=== PATIENT | male | born 1960 | race Caucasian/White ===

== ENCOUNTER → 2017-07-03 | Outpatient (CLI) | payer MEDICARE ==
[2014-04-03 14:12] VITALS: BP 133/84
[~2017-07-03] MED LIST: MOBIC15 MG PO; NEURONTIN300 MG PO; PERCOCET 325 MG1 TAB PO
[2017-07-03 15:26] LABS: EOS % 0.7 % (0.0-4.0); HEMATOCRIT 46.3 % (42.0-52.0); HEMOGLOBIN 15.2 g/dL (13.5-18.0); LYMPH# 1.6 (1.50-4.00); MEAN CELL VOLUME 92 fl (78-100); MEAN CORPUSCULAR HEMOGLOBIN 30 pg (27-31); MEAN CORPUSCULAR HGB CONC 33 g/dL (33-37); MEAN PLATELET VOLUME 9.2 fl (7.4-10.4); MONO # 0.5 (0.20-0.80); NEU # 3.9 (1.40-6.50); PLATELET COUNT 212 K/mm3 (130-400); RED BLOOD COUNT 5.05 M/mm3 (4.20-5.60); RED CELL DISTRIBUTION WIDTH 13.9 % (11.5-14.5); WHITE BLOOD COUNT 6.1 K/mm3 (4.8-10.8)
[2017-07-03 16:10] LABS: ALBUMIN 4.2 g/dL (3.5-5.0); BUN/CREATININE RATIO 17.8 (6.0-26.0); CALCIUM 9.3 mg/dL (8.4-10.2); POTASSIUM 4.3 mmol/L (3.6-5.0); TOTAL BILIRUBIN 0.5 mg/dL (0.2-1.3); TOTAL PROTEIN 7.1 g/dL (6.3-8.2)
[2017-07-03 16:44] LABS: ERYTHROCYTE SEDIMENTATION RATE 1 mm/hr (0-20)
[2017-07-03 17:50] LABS: URINE APPEARANCE CLEAR; URINE BILIRUBIN NEGATIVE (NEGATIVE); URINE BLOOD NEGATIVE (NEGATIVE); URINE COLOR YELLOW; URINE GLUCOSE NEGATIVE (NEGATIVE); URINE KETONE NEGATIVE (NEGATIVE); URINE LEUKOCYTE ESTERASE NEGATIVE (NEGATIVE); URINE NITRATE NEGATIVE (NEGATIVE); URINE PROTEIN(semi-quant) NEGATIVE (NEGATIVE); URINE UROBILINOGEN NORMAL (NORMAL)
== END ==
LOC: LAB 15:03
PROVIDERS: Internal Medicine
DX: R10.11 Right upper quadrant pain (principal); E78.2 Mixed hyperlipidemia; Z12.5 Encounter for screening for malignant neoplasm of prostate

== ENCOUNTER → 2017-07-06 | Outpatient (CLI) | payer MEDICARE ==
[2014-04-03 14:12] VITALS: BP 133/84
== END ==
LOC: RAD 10:10
DX: K76.9 Liver disease, unspecified (principal); K86.9 Disease of pancreas, unspecified; S32.020A Wedge compression fracture of second lumbar vertebra, initial encounter for closed fracture; Z98.890 Other specified postprocedural states
CPT/HCPCS: Q9967

== ENCOUNTER → 2017-07-16 | Outpatient (CLI) | payer MEDICARE ==
[2014-04-03 14:12] VITALS: BP 133/84
[2017-07-16 09:47] LABS: EOS # 0.1 (0.04-0.40); EOS % 1.1 % (0.0-4.0); HEMATOCRIT 46.9 % (42.0-52.0); HEMOGLOBIN 15.4 g/dL (13.5-18.0); LYMPH# 1.3 (1.50-4.00); MEAN CELL VOLUME 91 fl (78-100); MEAN CORPUSCULAR HEMOGLOBIN 30 pg (27-31); MEAN CORPUSCULAR HGB CONC 33 g/dL (33-37); MEAN PLATELET VOLUME 9.4 fl (7.4-10.4); MONO # 0.4 (0.20-0.80); NEU # 2.8 (1.40-6.50); PLATELET COUNT 222 K/mm3 (130-400); RED BLOOD COUNT 5.13 M/mm3 (4.20-5.60); RED CELL DISTRIBUTION WIDTH 14.1 % (11.5-14.5); WHITE BLOOD COUNT 4.5 K/mm3 (4.8-10.8)
[2017-07-16 10:00] LABS: ALBUMIN 4.1 g/dL (3.5-5.0); BUN/CREATININE RATIO 19.1 (6.0-26.0); CALCIUM 9.2 mg/dL (8.4-10.2); POTASSIUM 4.4 mmol/L (3.6-5.0); TOTAL BILIRUBIN 0.5 mg/dL (0.2-1.3); TOTAL PROTEIN 6.9 g/dL (6.3-8.2)
[2017-07-16 10:56] LABS: ERYTHROCYTE SEDIMENTATION RATE 1 mm/hr (0-20)
== END ==
LOC: LAB 09:24
PROVIDERS: Internal Medicine
DX: R10.11 Right upper quadrant pain (principal); K85.80 Other acute pancreatitis without necrosis or infection

== ENCOUNTER → 2017-08-05 | Outpatient (CLI) | payer MEDICARE ==
[2014-04-03 14:12] VITALS: BP 133/84
== END ==
LOC: LAB 13:12
DX: R19.4 Change in bowel habit (principal); R10.9 Unspecified abdominal pain; R63.4 Abnormal weight loss

== ENCOUNTER 2018-11-01 14:27 | Emergency (ER) | payer MEDICARE ==
[~2018-11-01] VITALS: Ht 177.8 cm; Wt 67.3 kg
[~2018-11-01 14:27] MED LIST changes: +NEURONTIN300 M1 PO; -NEURONTIN300 MG PO
[2018-11-01] MEDS ORDERED: LITHATE20 MG (14:44)
[2018-11-01] MEDS ORDERED: VALIUM 5MG T5 MG/TAB PO (14:45)
[2018-11-01 15:08] LABS: HEMATOCRIT 47.6 % (42.0-52.0); HEMOGLOBIN 15.7 g/dL (13.5-18.0); MEAN CELL VOLUME 90 fl (78-100); MEAN CORPUSCULAR HEMOGLOBIN 30 pg (27-31); MEAN CORPUSCULAR HGB CONC 33 g/dL (33-37); MEAN PLATELET VOLUME 9.4 fl (7.4-10.4); PLATELET COUNT 113 K/mm3 (130-400); RED BLOOD COUNT 5.28 M/mm3 (4.20-5.60); RED CELL DISTRIBUTION WIDTH 13.8 % (11.5-14.5)
[2018-11-01 15:16] LABS: ALBUMIN 3.8 g/dL (3.5-5.0); WHITE BLOOD COUNT 1.9 K/mm3 (4.8-10.8)
[2018-11-01 15:17] LABS: POTASSIUM 4.1 mmol/L (3.5-5.1)
[2018-11-01 15:18] LABS: CALCIUM 8.1 mg/dL (8.3-10.5)
[2018-11-01 15:19] LABS: TOTAL PROTEIN 6.3 g/dL (6.4-8.3)
[2018-11-01 15:21] LABS: TOTAL BILIRUBIN 0.3 mg/dL (0.2-1.2)
[2018-11-01 15:49] LABS: EOS % 0.5 % (0.0-4.0); MONO # 0.2 (0.20-0.80)
[2018-11-01 16:06] LABS: LYMPH# 0.7 (1.50-4.00); NEU # 1.1 (1.40-6.50)
[2018-11-01 16:07] LABS: LYMPHOCYTE 29 % (20-51); MONOCYTE 8 % (3-10); NEUTROPHILS 54 % (42-75)
[2018-11-01 17:06] LABS: URINE APPEARANCE CLEAR; URINE COLOR YELLOW; URINE PROTEIN(semi-quant) 1+ mg/dL (NEGATIVE)
[2018-11-01 17:07] LABS: URINE BILIRUBIN NEGATIVE (NEGATIVE); URINE BLOOD 50 ery/uL (NEGATIVE); URINE GLUCOSE NEGATIVE (NEGATIVE); URINE KETONE 1+ (NEGATIVE); URINE LEUKOCYTE ESTERASE NEGATIVE (NEGATIVE); URINE MUCUS PRESENT (NOT PRESENT); URINE NITRATE NEGATIVE (NEGATIVE); URINE UROBILINOGEN NORMAL (NORMAL); URINE WBC 0-1 /hpf (0-3)
[2018-11-01] MEDS ORDERED: PERCOCET 325 MG1 TA2 PO (17:57)
[2018-11-01] MEDS ORDERED: VIBRAMYCIN HYC100 MG PO (17:57)
[2018-11-01] MEDS ORDERED: ZOFRAN4 M2 PO (17:57)
[2018-11-01 19:11] VITALS: BP 92/54
== END 2018-11-01 19:11 | disposition home or self-care (01) ==
LOC: ED 14:27
PROVIDERS: Nurse Practitioner Primary Care
DX: D70.9 Neutropenia, unspecified (principal); M54.9 Dorsalgia, unspecified; R11.2 Nausea with vomiting, unspecified; M19.90 Unspecified osteoarthritis, unspecified site; F17.210 Nicotine dependence, cigarettes, uncomplicated; Z90.49 Acquired absence of other specified parts of digestive tract; Z98.890 Other specified postprocedural states
CPT/HCPCS: J0696; J1885; J2270; J2405; J7030

== ENCOUNTER → 2018-11-11 | Outpatient (CLI) | payer MEDICARE ==
[2018-11-01 19:11] VITALS: BP 92/54
[~2018-11-11] MED LIST changes: +LITHATE20 MG; +PERCOCET 325 MG1 TA2 PO; +VALIUM 5MG T5 MG/TAB PO; +VIBRAMYCIN HYC100 MG PO; +ZOFRAN4 M2 PO
[2018-11-11 12:27] LABS: BASO # 0.1 (0.02-0.10); EOS # 0.1 (0.04-0.40); EOS % 1.8 % (0.0-4.0); HEMATOCRIT 48.2 % (42.0-52.0); HEMOGLOBIN 15.9 g/dL (13.5-18.0); LYMPH# 1.8 (1.50-4.00); MEAN CELL VOLUME 90 fl (78-100); MEAN CORPUSCULAR HEMOGLOBIN 30 pg (27-31); MEAN CORPUSCULAR HGB CONC 33 g/dL (33-37); MEAN PLATELET VOLUME 9.4 fl (7.4-10.4); MONO # 0.4 (0.20-0.80); NEU # 1.7 (1.40-6.50); PLATELET COUNT 278 K/mm3 (130-400); RED BLOOD COUNT 5.37 M/mm3 (4.20-5.60); RED CELL DISTRIBUTION WIDTH 13.7 % (11.5-14.5)
[2018-11-11 12:46] LABS: POTASSIUM 4.6 mmol/L (3.5-5.1)
[2018-11-11 12:47] LABS: CALCIUM 9.6 mg/dL (8.3-10.5)
[2018-11-11 12:48] LABS: TOTAL PROTEIN 6.7 g/dL (6.4-8.3)
[2018-11-11 12:50] LABS: TOTAL BILIRUBIN 0.4 mg/dL (0.2-1.2)
== END ==
LOC: LAB 12:16
PROVIDERS: Internal Medicine
DX: R10.11 Right upper quadrant pain (principal)

== ENCOUNTER → 2019-12-05 | Outpatient (CLI) | payer MEDICARE, BC ==
[2019-12-06 09:38] LABS: ALBUMIN 4.3 g/dL (3.5-5.0); ALT/SGPT 18 U/L (0-55); AST-SGOT 13 U/L (5-34); CALCIUM 9.1 mg/dL (8.3-10.5); CARBON DIOXIDE 27 mmol/L (22-29); GLUCOSE 80 mg/dL (75-110); POTASSIUM 4.4 mmol/L (3.5-5.1); SODIUM 138 mmol/L (136-145); TOTAL BILIRUBIN 0.3 mg/dL (0.2-1.2); TOTAL PROTEIN 6.7 g/dL (6.4-8.3)
[2019-12-06 09:42] LABS: EOS # 0.1 (0.04-0.40); EOS % 1.2 % (0.0-4.0); HEMATOCRIT 47.5 % (42.0-52.0); HEMOGLOBIN 15.6 g/dL (13.5-18.0); LYMPH# 2.1 (1.50-4.00); MEAN CELL VOLUME 91 fl (78-100); MEAN CORPUSCULAR HEMOGLOBIN 30 pg (27-31); MEAN CORPUSCULAR HGB CONC 33 g/dL (33-37); MEAN PLATELET VOLUME 9.2 fl (7.4-10.4); MONO # 0.6 (0.20-0.80); NEU # 3.9 (1.40-6.50); PLATELET COUNT 245 K/mm3 (130-400); WHITE BLOOD COUNT 6.8 K/mm3 (4.8-10.8)
[2019-12-06 09:43] LABS: ERYTHROCYTE SEDIMENTATION RATE 3 mm/hr (0-20)
[2019-12-06 21:58] LABS: TESTOSTERONE 784 ng/dL (221-716)
== END ==
LOC: LAB 15:18
PROVIDERS: Internal Medicine
DX: Z12.5 Encounter for screening for malignant neoplasm of prostate (principal); M25.512 Pain in left shoulder; M25.552 Pain in left hip; G44.019 Episodic cluster headache, not intractable; M48.061 Spinal stenosis, lumbar region without neurogenic claudication; N52.9 Male erectile dysfunction, unspecified; E78.2 Mixed hyperlipidemia; R20.2 Paresthesia of skin

== ENCOUNTER → 2019-12-22 | Outpatient (CLI) | payer MEDICARE, BC | LOC: RAD 10:32 | DX: M48.061 Spinal stenosis, lumbar region without neurogenic claudication (principal); M47.26 Other spondylosis with radiculopathy, lumbar region; M47.27 Other spondylosis with radiculopathy, lumbosacral region; M51.36 Other intervertebral disc degeneration, lumbar region; S43.432A Superior glenoid labrum lesion of left shoulder, initial encounter; M75.82 Other shoulder lesions, left shoulder; S32.010A Wedge compression fracture of first lumbar vertebra, initial encounter for closed fracture; S32.020A Wedge compression fracture of second lumbar vertebra, initial encounter for closed fracture; M25.552 Pain in left hip; Z98.890 Other specified postprocedural states | CPT/HCPCS: A9585 ==

== ENCOUNTER 2020-10-20 19:07 | Emergency (ER) | payer MEDICARE, BC ==
[~2020-10-20] VITALS: Ht 175.3 cm; Wt 77.3 kg
[2020-10-20] MEDS ORDERED: PROLATE PO (20:04)
[2020-10-20] MEDS ORDERED: CELEBREX400 MG PO (20:04)
[2020-10-20 20:46] LABS: BASO # 0.03 (0.02-0.10); EOS # 0.11 (0.04-0.40); EOS % 2.5 % (0.0-4.0); HEMOGLOBIN 16.9 g/dL (13.5-18.0); LYMPH# 0.92 (1.50-4.00); MEAN CELL VOLUME 92 fl (78-100); MEAN CORPUSCULAR HEMOGLOBIN 30 pg (27-31); MEAN CORPUSCULAR HGB CONC 33 g/dL (33-37); MEAN PLATELET VOLUME 8.7 fl (7.4-10.4); MONO # 0.47 (0.20-0.80); NEU # 2.83 (1.40-6.50); PLATELET COUNT 201 K/mm3 (130-400); RED BLOOD COUNT 5.65 M/mm3 (4.20-5.60); RED CELL DISTRIBUTION WIDTH 13.2 % (11.5-14.5); WHITE BLOOD COUNT 4.4 K/mm3 (4.8-10.8)
[2020-10-20 20:58] LABS: ALBUMIN 4.4 g/dL (3.4-4.8); POTASSIUM 4.6 mmol/L (3.5-5.1)
[2020-10-20 21:00] LABS: CALCIUM 9.7 mg/dL (8.3-10.5)
[2020-10-20 21:01] LABS: TOTAL PROTEIN 7.4 g/dL (6.2-8.1)
[2020-10-20 21:03] LABS: TOTAL BILIRUBIN 0.9 mg/dL (0.2-1.2)
[2020-10-20] MEDS ORDERED: GUAIFEN-CODEINE5 ML PO (22:02)
[2020-10-20] MEDS ORDERED: ZITHROMAX 250M250 MG PO (22:02)
[2020-10-20] MEDS ORDERED: DEXAMETHASONE6 M1 PO (22:02)
[2020-10-20 22:18] VITALS: BP 110/85
== END 2020-10-20 22:18 | disposition home or self-care (01) ==
LOC: ED 19:07
PROVIDERS: Family Medicine
DX: J40 Bronchitis, not specified as acute or chronic (principal); F17.210 Nicotine dependence, cigarettes, uncomplicated; Z20.822 Contact with and (suspected) exposure to COVID-19

== ENCOUNTER → 2020-11-01 | Outpatient (CLI) | payer MEDICARE, BC ==
[~2020-11-01] MED LIST changes: +CELEBREX400 MG PO; +DEXAMETHASONE6 M1 PO; +GUAIFEN-CODEINE5 ML PO; +PROLATE PO; +ZITHROMAX 250M250 MG PO
[2020-11-01 10:06] LABS: HEMATOCRIT 49.2 % (42.0-52.0); HEMOGLOBIN 15.8 g/dL (13.5-18.0); MEAN PLATELET VOLUME 8.2 fl (7.4-10.4); RED BLOOD COUNT 5.3 M/mm3 (4.20-5.60); WHITE BLOOD COUNT 4.7 K/mm3 (4.8-10.8)
[2020-11-01 10:20] LABS: ALBUMIN 3.9 g/dL (3.4-4.8); POTASSIUM 4.5 mmol/L (3.5-5.1); SODIUM 138 mmol/L (136-145)
[2020-11-01 10:21] LABS: CALCIUM 9.4 mg/dL (8.3-10.5)
[2020-11-01 10:22] LABS: GLUCOSE 96 mg/dL (75-110); TOTAL PROTEIN 6.7 g/dL (6.2-8.1)
[2020-11-01 10:23] LABS: CARBON DIOXIDE 23 mmol/L (23-31)
[2020-11-01 10:24] LABS: TOTAL BILIRUBIN 0.5 mg/dL (0.2-1.2)
[2020-11-01 10:27] LABS: AST-SGOT 16 U/L (5-34)
[2020-11-01 10:29] LABS: ALT/SGPT 17 U/L (0-55)
[2020-11-01 10:38] LABS: TROPONIN-I < 0.03 ng/mL (<0.030)
== END ==
LOC: RAD 09:11 → AMSURD 09:11
PROVIDERS: Nurse Practitioner
DX: J42 Unspecified chronic bronchitis (principal); Z72.0 Tobacco use

== ENCOUNTER → 2020-11-09 | Outpatient (CLI) | payer MEDICARE, BC ==
--- NOTE | 2020-11-09 18:32 | NUR ---
HOLTER MONITOR #3 PLACED ON PATIENT
== END ==
LOC: AMSURD 18:03
DX: R00.1 Bradycardia, unspecified (principal)

== ENCOUNTER → 2020-12-28 | Outpatient (CLI) | payer MEDICARE, BC | LOC: CARDREHAB 09:54 | DX: R06.00 Dyspnea, unspecified (principal) | CPT/HCPCS: A9500 ==

== ENCOUNTER → 2020-12-31 | Outpatient (CLI) | payer MEDICARE, BC | LOC: LAB 10:51 | DX: Z03.89 Encounter for observation for other suspected diseases and conditions ruled out (principal); K90.9 Intestinal malabsorption, unspecified ==

== ENCOUNTER → 2021-01-08 | Outpatient (CLI) | payer MEDICARE, BC ==
[2021-01-08 12:07] LABS: BASO # 0.05 K/mm3 (0.02-0.10); EOS # 0.06 K/mm3 (0.04-0.40); EOS % 0.7 % (0.0-4.0); HEMATOCRIT 48.7 % (42.0-52.0); HEMOGLOBIN 15.7 g/dL (13.5-18.0); LYMPH# 3.49 K/mm3 (1.50-4.00); MEAN CELL VOLUME 92 fl (78-100); MEAN CORPUSCULAR HEMOGLOBIN 30 pg (27-31); MEAN CORPUSCULAR HGB CONC 32 g/dL (33-37); MEAN PLATELET VOLUME 8.6 fl (7.4-10.4); MONO # 0.73 K/mm3 (0.20-0.80); NEU # 4.74 K/mm3 (1.40-6.50); PLATELET COUNT 251 K/mm3 (130-400); RED BLOOD COUNT 5.28 M/mm3 (4.20-5.60); RED CELL DISTRIBUTION WIDTH 13.2 % (11.5-14.5); WHITE BLOOD COUNT 9.1 K/mm3 (4.8-10.8)
[2021-01-08 12:20] LABS: POTASSIUM 3.9 mmol/L (3.5-5.1)
[2021-01-08 12:21] LABS: CALCIUM 9.6 mg/dL (8.3-10.5)
[2021-01-08 12:22] LABS: TOTAL PROTEIN 6.6 g/dL (6.2-8.1)
[2021-01-08 12:24] LABS: TOTAL BILIRUBIN 0.3 mg/dL (0.2-1.2)
== END ==
LOC: LAB 11:57
PROVIDERS: Internal Medicine
DX: R10.84 Generalized abdominal pain (principal)

== ENCOUNTER → 2021-02-18 | Outpatient (CLI) | payer MEDICARE, BC | LOC: LAB 10:53 | DX: U07.1 COVID-19 (principal) ==

== ENCOUNTER → 2021-03-18 | Outpatient (CLI) | payer MEDICARE, BC ==
[2021-03-18 22:42] LABS: IMMUNOGLOBULIN E, TOTAL 78 IU/mL (0-100)
[2021-03-20 04:17] LABS: ALTERNARIA TENUIS CNT <0.10 kU/L (()); ASPERGILLUS FUMIGATUS AL COUNT <0.10 kU/L (()); BERMUDA GRASS ALLERGEN COUNT 0.17 kU/L (()); BOX ELDER-MAPLE ALLERGEN COUNT 0.16 kU/L (()); CAT DANDER ALLERGEN COUNT <0.10 kU/L (()); CLADOSPORIUM ALLERGEN COUNT <0.10 kU/L (()); COCKROACH ALLERGEN COUNT <0.10 kU/L (()); COTTONWOOD TREE ALLERGEN COUNT 0.28 kU/L (()); DOG DANDER ALLERGEN COUNT 0.18 kU/L (()); DUST MITES (D.F.) ALLERG COUNT <0.10 kU/L (()); DUST MITES (D.P.) ALLERG COUNT <0.10 kU/L (()); ELM TREE ALLERGEN COUNT 0.23 kU/L (()); FIREBUSH ALLERGEN COUNT 1.45 kU/L (()); OAK ALLERGEN COUNT 0.18 kU/L (()); ROUGH MARSH ELDER ALLERG COUNT <0.10 kU/L (()); SHORT RAGWEED ALLERGEN COUNT 0.17 kU/L (())
== END ==
LOC: LAB 10:02
PROVIDERS: Internal Medicine Pulmonary Disease
DX: R06.02 Shortness of breath (principal)

== ENCOUNTER → 2021-04-25 | Outpatient (CLI) | payer MEDICARE, BC | LOC: LAB 11:02 | DX: Z20.822 Contact with and (suspected) exposure to COVID-19 (principal) ==

== ENCOUNTER → 2021-11-25 | Outpatient (CLI) | payer MEDICARE, BC | LOC: LAB 17:27 | DX: L30.9 Dermatitis, unspecified (principal); R73.03 Prediabetes ==

== ENCOUNTER → 2024-01-26 | Outpatient (CLI) | payer MEDICARE ==
[2024-01-26 22:33] LABS: IMMUNOGLOBULIN E, TOTAL 51 IU/mL (0-100)
== END ==
LOC: LAB 15:13
PROVIDERS: Dermatology
DX: L30.9 Dermatitis, unspecified (principal)

== ENCOUNTER → 2024-02-09 | Outpatient (CLI) | payer MEDICARE | LOC: MAMMO 08:15 | DX: D17.79 Benign lipomatous neoplasm of other sites (principal); N62 Hypertrophy of breast; R22.2 Localized swelling, mass and lump, trunk ==